=== PATIENT | female | born 1945 | race Caucasian/White ===

== ENCOUNTER 2018-01-12 12:14 | Emergency (ER) | payer MEDICARE, OTHER ==
[2018-01-12] MEDS ORDERED: MECLIZINE 12.5 MG TABLET PO STA ×2 (14:55→16:18)
--- NOTE | 2018-01-12 14:59 | ED Physician Documentation ---
History of Present Illness - Stated complaint Stated Complaint: DIZZY - Chief complaint Chief Complaint: Neuro - Additonal information Additional information: hx from pt 72 f hx vertigo vertigo since midnight no FUCHS just a dizzy feeling no vision or hearing abn no numbness or weakness BP running high - took usual meds Review of Systems Constitutional: denies: Fever Eyes: denies: Loss of vision, Decreased vision Ears: denies: Loss of hearing, Ear pain Cardiac: denies: Chest pain / pressure, Palpitations Respiratory: denies: Dyspnea, Cough GI: denies: Vomiting Neurologic: reports: Other (dizzy). denies: Headache Endocrine: denies: Easy bruising / bleeding PD PAST MEDICAL HISTORY - Past Medical History Past Medical History: Yes Cardiovascular: None Respiratory: None Neuro: None Endocrine/Autoimmune: Type 2 diabetes, HyPERthyroidism GI: Chronic constipation SLIP FEEDER: Miscarriage(s) : None HEENT: None Psych: None Musculoskeletal: Osteoarthritis, Chronic back pain - Past Surgical History Past Surgical History: Yes Ortho: Arthroscopic surgery /SLIP FEEDER: Hysterectomy, Oophrectomy - Present Medications Home Medications: Ambulatory Orders Medication Instructions Recorded Confirmed Glipizide [Glipizide Xl] 01/12/18 Levothyroxine [Synthroid] 01/12/18 Losartan [Cozaar] 01/12/18 Lovastatin 10 mg PO QPM 01/12/18 01/12/18 Meclizine [Antivert] 25 mg PO Q6H PRN #20 tablet 01/12/18 metFORMIN [Glucophage] 500 mg PO ONCE 01/12/18 01/12/18 - Allergies Allergies/Adverse Reactions: Allergies Allergy/AdvReac Type Severity Reaction Status Date / Time No Known Drug Allergies Allergy Verified 01/12/18 12:23 - Social History Does the pt smoke?: No Smoking Status: Never smoker Does the pt drink ETOH?: No Does the pt have substance abuse?: No - Immunizations Immunizations are current?: Yes - POLST Patient has POLST: Yes PD ED PE NORMAL - Vitals Vital signs reviewed: Yes - HEENT HEENT: PERRL (horizontal nystagmus), Ears normal - Neck Neck: Supple, no meningeal sign - Cardiac Cardiac: RRR - Respiratory Respiratory: No respiratory distress - Abdomen Abdomen: Soft - Derm Derm: Normal color - Neuro Neuro: Alert and oriented X 3, 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, No motor deficit, No sensory deficit, Normal speech Eye Opening: Spontaneous Motor: Obeys Commands Verbal: Oriented GCS Score: 15 Results - Vitals Vitals: Vital Signs - 24 hr 01/12/18 01/12/18 01/12/18 12:20 13:13 15:08 Temperature 36.8 C 37.2 C 36.6 C Heart Rate 99 94 101 H Respiratory 18 14 16 Rate Blood Pressure 174/105 H 171/73 H 145/78 H O2 Saturation 99 100 100 Oxygen O2 Source Room air - EKG (time done) 1233 Rate: Rate (enter#) (92) Rhythm: NSR Intervals: Normal [place] Ischemia: Normal ST segments - Labs Labs: Laboratory Tests 01/12/18 15:35 Urine Color YELLOW Urine Clarity CLEAR Urine pH 7.0 Ur Specific [place] <=1.005 Urine Protein NEGATIVE Urine Glucose (UA) NEGATIVE Urine Ketones NEGATIVE Urine Occult Blood TRACE-LYSE Urine Nitrite NEGATIVE Urine Bilirubin NEGATIVE Urine Urobilinogen 0.2 (NORMAL) Ur Leukocyte Esterase NEGATIVE Ur Microscopic Review NOT INDICATED Urine Culture Comments NOT INDICATED PD MEDICAL DECISION MAKING - ED course ED course: vetigo with a hx same no other neuro deficits will start trial of meclizine better after meclizine - road test s diff -will dc Departure - Departure Disposition: 01 Home, Self Care Condition: Good Instructions: ED Vertigo Unspecified Prescriptions: Meclizine [Antivert] 25 mg PO Q6H PRN #20 tablet PRN Reason: Dizziness Comments: Take the meclizine as needed for dizziness No driving until better Follow up PMD if symptoms persist Return if worse
[2018-01-12 15:46] LABS: BILIRUBIN,URINE NEGATIVE (NEGATIVE); GLUCOSE, URINE (UA) NEGATIVE (NEGATIVE); KETONES,URINE (UA) NEGATIVE (NEGATIVE); LEUKOCYTE ESTERASE, URINE NEGATIVE (NEGATIVE); NITRITE,URINE NEGATIVE (NEGATIVE); OCCULT BLOOD,URINE TRACE-LYSE (NEGATIVE); PROTEIN,URINE NEGATIVE (NEGATIVE); UROBILINOGEN,URINE 0.2 (NORMAL) E.U./dL (NORMAL)
[2018-01-12 15:47] LABS: CLARITY,URINE CLEAR (CLEAR)
[2018-01-12 17:09] VITALS: BP 163/78
== END 2018-01-12 17:15 | disposition home or self-care (01) ==
LOC: ED 12:14
DX: R42 Dizziness and giddiness (principal); E11.9 Type 2 diabetes mellitus without complications; Z79.84 Long term (current) use of oral hypoglycemic drugs; E05.90 Thyrotoxicosis, unspecified without thyrotoxic crisis or storm; M19.90 Unspecified osteoarthritis, unspecified site
CPT/HCPCS: 81003; 93005; 99283; 99284; A9270; 81001; 87086